=== PATIENT | male | born 1975 | race African-American/Black ===

== ENCOUNTER 2016-09-14 23:44 | Emergency (ER) | payer OTHER ==
[~2016-09-14 23:44] MED LIST: AMOXICILLIN875 MG PO; BENTYL20 MG PO; COLACE100 MG PO; DESYREL100 MG PO; LISINOPRIL20 MG PO; OMEPRAZOLE20 MG PO; RANITIDINE HCL150 M1 PO; ZANTAC150 MG PO
[2016-09-15 00:08] LABS: EOSINOPHIL COUNT 0.1 K/uL (0-0.3); IMMATURE GRANULOCYTE (%) 0.4 % (0.0-0.7); INSTRUMENT ABS NEUTROPHIL CT 2.8 K/uL; LYMPHOCYTE COUNT 2.1 K/uL (1.0-2.8); MCH 29.4 PG (29.0-34.0); MCV 86.4 FL (86-99); MEAN PLAT.VOLUME 10.4 uM^3 (9.0-12.4); MONOCYTE (%) 6.1 % (3-12); MONOCYTE COUNT 0.3 K/uL (0-0.8); NEUTROPHIL (%) 52.5 % (45-76); NEUTROPHIL COUNT 2.8 K/uL (1.8-6.4); PLATELET COUNT 157 K/uL (156-360); RBC DIS.WIDTH-CV 12.3 % (11.8-14.6); RBC DIS.WIDTH-SD 38.8 % (39-53); RED BLOOD COUNT 4.63 M/uL (4.00-5.50); WHITE BLOOD COUNT 5.3 K/uL (4.1-10.2)
[2016-09-15 00:18] LABS: AMYLASE 87 IU/L (1-118); CHLORIDE 104 mEq/L (99-109); SODIUM 135 mEq/L (136-147)
[2016-09-15 00:20] LABS: GLUCOSE 94 mg/dL (70-99)
[2016-09-15 00:21] LABS: ANION GAP 8 MEQ/L (2-14)
[2016-09-15 00:23] LABS: SERUM ETHYL ALCOHOL < 10 mg/dL
[2016-09-15 00:24] LABS: GFR ESTIMATE (CALCULATED) > 59 mL/min/
[2016-09-15 00:25] LABS: UREA NITROGEN (BUN) 12 mg/dL (9-23)
[2016-09-15 00:27] LABS: LIPASE 17 U/L (1.0-51.0)
[2016-09-15] MEDS ORDERED: NORCO 5/3251 TABLET PO (00:34)
[2016-09-15 00:52] LABS: ADD MIUA? NO; BILIRUBIN NEGATIVE; BLOOD NEGATIVE; COLOR STRAW ((YELLOW)); GLUCOSE (STRIP) NEGATIVE; KETONES NEGATIVE; LEUKOCYTES NEGATIVE; NITRITE NEGATIVE; PROTEIN (STRIP) NEGATIVE; SPECIFIC GRAVITY 1.017 (1.000-1.030); UCUL ADDED? NO; UROBILINOGEN 0.2 MG/DL (0.2-1.0)
[2016-09-15 01:01] LABS: AMPHETAMINE NEGATIVE (500 ng/mL); BARBITURATES NEGATIVE (200 ng/mL); BENZODIAZEPINES NEGATIVE (150 ng/mL); COCAINE NEGATIVE (150 ng/mL); INTERNAL CONTROLS VALID? YES; METHADONE NEGATIVE (200 ng/mL); METHAMPHETAMINE NEGATIVE (500 ng/mL); OPIATES (MORPHINE) NEGATIVE (100 ng/mL); OXYCODONE NEGATIVE (100 ng/mL); PHENCYCLIDINE NEGATIVE (25 ng/mL); PROPOXYPHENE NEGATIVE (300 ng/mL); THC CANNABINOIDS NEGATIVE (50 ng/mL); TRICYCLIC ANTIDEPRESSANTS NEGATIVE (300 ng/mL)
== END 2016-09-15 01:13 | disposition home or self-care (01) ==
LOC: TRA 23:44
PROVIDERS: Emergency Medicine
DX: S30.1XXA Contusion of abdominal wall, initial encounter (principal); W24.0XXA Contact with lifting devices, not elsewhere classified, initial encounter
CPT/HCPCS: 71010; 72132; 74177; 80048; 81003; 82150; 83690; 85025; 86900; 86901; 99281; 99285; G0480

== ENCOUNTER 2016-09-24 17:23 | Emergency (ER) | payer OTHER ==
[~2016-09-24] VITALS: Ht 180.3 cm; Wt 85.0 kg
[~2016-09-24 17:23] MED LIST changes: +NORCO 5/3251 TABLET PO
[2016-09-24 18:31] LABS: MCH 29.5 PG (29.0-34.0); MCHC 33.8 G/DL (30.0-36.0); MCV 87.2 FL (86-99); MEAN PLAT.VOLUME 10.6 uM^3 (9.0-12.4); PLATELET COUNT 194 K/uL (156-360); RBC DIS.WIDTH-CV 12.3 % (11.8-14.6); RBC DIS.WIDTH-SD 39.3 % (39-53); RED BLOOD COUNT 5.16 M/uL (4.00-5.50); WHITE BLOOD COUNT 7.3 K/uL (4.1-10.2)
[2016-09-24 18:42] LABS: CHLORIDE 103 mEq/L (99-109); POTASSIUM 4.8 mEq/L (3.7-5.4); SODIUM 140 mEq/L (136-147)
[2016-09-24 18:44] LABS: GLUCOSE 96 mg/dL (70-99)
[2016-09-24 18:46] LABS: ANION GAP 12 MEQ/L (2-14); TOTAL BILIRUBIN 0.6 mg/dL (0.0-1.0)
[2016-09-24 18:48] LABS: ALKALINE PHOSPHATASE 86 IU/L (3-129); GFR ESTIMATE (CALCULATED) > 59 mL/min/
[2016-09-24 18:49] LABS: UREA NITROGEN (BUN) 13 mg/dL (9-23)
[2016-09-24 18:56] LABS: PROTHROMBIN TIME 10.5 (9.2-11.2); PTT 26.1 (25-32)
[2016-09-24 20:10] LABS: ADD MIUA? NO; BILIRUBIN NEGATIVE; BLOOD NEGATIVE; COLOR YELLOW ((YELLOW)); GLUCOSE (STRIP) NEGATIVE; KETONES NEGATIVE; LEUKOCYTES NEGATIVE; NITRITE NEGATIVE; PROTEIN (STRIP) NEGATIVE; SPECIFIC GRAVITY 1.013 (1.000-1.030); UCUL ADDED? NO; UROBILINOGEN 0.2 MG/DL (0.2-1.0)
[2016-09-24] MEDS ORDERED: CARAFATE1 GM PO (20:57)
[2016-09-24 21:19] VITALS: BP 139/95
== END 2016-09-24 21:20 | disposition home or self-care (01) ==
LOC: EME 17:23
PROVIDERS: Emergency Medicine
DX: R10.32 Left lower quadrant pain (principal); K92.1 Melena; K64.4 Residual hemorrhoidal skin tags; I10 Essential (primary) hypertension
CPT/HCPCS: 74177; 80053; 81003; 85027; 85610; 85730; 86900; 86901; 99281; 99285; J7030